=== PATIENT | male | born 1995 | race Caucasian/White ===

== ENCOUNTER 2021-07-17 00:53 | Emergency (ER) | payer OTHER ==
[2021-07-17 01:20] VITALS: BP 126/79; PULSE 88; RESP 22; TEMP 98.9
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
[2021-07-17] MEDS ORDERED: BACITRACIN OINT 1 EACH PACKET TOPICAL ONE (02:09)
== END 2021-07-17 02:39 | disposition home or self-care (01) ==
LOC: EC 00:53
DX: T23.221A Burn of second degree of single right finger (nail) except thumb, initial encounter (principal); X12.XXXA Contact with other hot fluids, initial encounter
CPT/HCPCS: 16020; 99283